=== PATIENT | male | born 1945 | race Two or more races ===

== ENCOUNTER 2019-04-06 18:06 | Emergency (ER) | payer MEDICARE, OTHER, MEDICAID ==
[~2019-04-06] VITALS: Ht 165.1 cm; Wt 70.0 kg
[2019-04-06 19:15] LABS: BASOPHILS % 0.4 % (0.0-2.0); CHLORIDE 94 mEq/L (98-107); HEMATOCRIT. 40.6 % (42.0-52.0); HEMOGLOBIN. 13.7 g/dL (14.0-18.0); LYMPHOCYTES % 9.8 % (20.0-50.0); MEAN CORPUSCULAR HEMOGLOBIN 29.5 pg (28.0-32.0); MEAN CORPUSCULAR VOLUME 87.4 fL (80.0-94.0); MEAN PLATELET VOLUME 7.9 fl (7.4-10.4); MONOCYTES % 6.5 % (2.0-8.0); NEUTROPHILS % 82.3 % (40.0-76.0); PLATELET 452 x1000/uL (130-400); RED BLOOD CELL COUNT 4.65 mill/uL (4.7-6.1); RED CELL DISTRIBUTION WIDTH 15.4 % (11.6-14.6)
[2019-04-06 19:30] VITALS: BP 114/61
[2019-04-06] MEDS ORDERED: ASPIRIN 81MG TABLET PO ONE (20:30)
== END 2019-04-06 21:40 | disposition left against medical advice (07) ==
LOC: ER 18:06
DX: I21.4 Non-ST elevation (NSTEMI) myocardial infarction (principal); I50.9 Heart failure, unspecified; I20.9 Angina pectoris, unspecified; R07.9 Chest pain, unspecified; D72.829 Elevated white blood cell count, unspecified; D64.9 Anemia, unspecified; N28.9 Disorder of kidney and ureter, unspecified; R79.89 Other specified abnormal findings of blood chemistry; E11.9 Type 2 diabetes mellitus without complications; E78.00 Pure hypercholesterolemia, unspecified; I25.2 Old myocardial infarction; Z88.8 Allergy status to other drugs, medicaments and biological substances; Z86.73 Personal history of transient ischemic attack (TIA), and cerebral infarction without residual deficits
CPT/HCPCS: 36415; 71045; 83880; 84484; 93005; 99284